=== PATIENT | male | born 1990 | race Caucasian/White ===

== ENCOUNTER 2017-11-14 12:02 | Emergency (ER) | payer OTHER ==
[2017-11-14] MEDS: KETOROLAC 30 MG INJ IM (16:44)
== END 2017-11-14 17:40 | disposition left against medical advice (07) ==
LOC: E/R 12:02
DX: S33.5XXA Sprain of ligaments of lumbar spine, initial encounter (principal); I10 Essential (primary) hypertension; X58.XXXA Exposure to other specified factors, initial encounter; Y92.9 Unspecified place or not applicable
CPT/HCPCS: 93005; 96372; 99284-25